=== PATIENT | male | born 1980 | race Caucasian/White ===

== ENCOUNTER 2017-12-02 17:26 | Emergency (ER) | payer OTHER | END 2017-12-02 20:20 | disposition left against medical advice (07) | LOC: M ED 17:26 | DX: Z53.21 Procedure and treatment not carried out due to patient leaving prior to being seen by health care provider (principal) ==

== ENCOUNTER 2018-02-07 20:26 | Emergency (ER) | payer OTHER ==
[2018-02-07] MEDS: AUGMENTIN 875 MG TAB PO (21:56)
[2018-02-07] MEDS: NORCO, ANEXSIA 5/325MG TABLET (HYDROcodone/ACETAMINOPHEN) PO (21:57)
== END 2018-02-07 22:04 | disposition home or self-care (01) ==
LOC: M ED 20:26
DX: K02.9 Dental caries, unspecified (principal); I10 Essential (primary) hypertension; G89.29 Other chronic pain; M54.9 Dorsalgia, unspecified; Z79.899 Other long term (current) drug therapy
CPT/HCPCS: 99283

== ENCOUNTER 2019-10-09 02:36 | Emergency (ER) | payer OTHER ==
[~2019-10-09] VITALS: Ht 190.5 cm; Wt 113.6 kg
[~2019-10-09 02:36] MED LIST: AUGM875T28 PO; HYDR-3715 PO; IBUP80TA PO; LISI20TA20 PO; Lisinopril-Hctz; TRAM50TA2 PO
[2019-10-09] MEDS ORDERED: SUBO8MIS (02:44)
[2019-10-09] MEDS ORDERED: BUPIVACAINE LIPOSOME/PF 1.3% 20ML VIAL (13.3MG/ML)(EXPAREL)(C9290 PER1MG) INFIL ONE ×2 (04:30)
[2019-10-09] MEDS ORDERED: HYDROMORPHONE HCL 0.5 MG/ 0.5 ML SYRINGE (J1170 PER 1) IV ONE (04:30)
[2019-10-09] MEDS ORDERED: AMPICILLIN SOD/SULBACTAM SOD 3 GM in D5W MINI-BAG PLUS 100 ML IV ONE (04:30)
[2019-10-09 04:45] VITALS: BP 189/95
[2019-10-09 04:51] LABS: BASO # 0.1 10^3/uL (0.0-0.2); BASO % 0.7 % (0.0-1.0); EOS # 0.4 10^3/uL (0.0-0.5); EOS % 4.4 % (0.0-3.0); HEMATOCRIT 44.8 % (42.0-52.0); HEMOGLOBIN 14.6 g/dl (13.5-17.5); LYMPH # 2.2 10^3/uL (1.5-5.0); LYMPH % 23.7 % (24.0-44.0); MEAN CORPUSCULAR HEMOGLOBIN 30.1 pg (27.0-33.0); MEAN CORPUSCULAR HGB CONC 32.6 g/dl (32.0-36.5); MEAN CORPUSCULAR VOLUME 92.4 fl (80.0-96.0); MONO # 1.3 10^3/uL (0.0-0.8); MONO % 14.3 % (0.0-5.0); NEUTROPHILS # 5.1 10^3/uL (1.5-8.5); NEUTROPHILS % 56.1 % (36.0-66.0); PLATELET COUNT, AUTOMATED 252 10^3/uL (150-450); RED BLOOD COUNT 4.85 10^6/uL (4.30-6.10); WHITE BLOOD COUNT 9.1 10^3/uL (4.0-10.0)
[2019-10-09] MEDS ORDERED: AUGM500T34 PO (05:01)
== END 2019-10-09 05:18 | disposition home or self-care (01) ==
LOC: M ED 02:36
DX: K12.2 Cellulitis and abscess of mouth (principal); K08.89 Other specified disorders of teeth and supporting structures; I10 Essential (primary) hypertension; Z79.899 Other long term (current) drug therapy; Z79.891 Long term (current) use of opiate analgesic
CPT/HCPCS: 64400; 85025; 87040; 87880; 96365; 96375; 99284; C9290; J1170

== ENCOUNTER 2020-06-17 08:52 | Emergency (ER) | payer OTHER ==
[~2020-06-17] VITALS: Ht 190.5 cm; Wt 100.0 kg
[~2020-06-17 08:52] MED LIST changes: +AUGM500T34 PO; +SUBO8MIS
[2020-06-17] MEDS ORDERED: AMLO1TAB25 (09:06)
[2020-06-17] MEDS ORDERED: ATEN100T (09:06)
[2020-06-17] MEDS ORDERED: NS 1,000 ML IV ONE ×2 (09:15→10:30)
[2020-06-17 09:22] LABS: HEMATOCRIT 44.8 % (42.0-52.0); HEMOGLOBIN 15.2 g/dl (13.5-17.5); MEAN CORPUSCULAR HEMOGLOBIN 30.1 pg (27.0-33.0); MEAN CORPUSCULAR HGB CONC 33.9 g/dl (32.0-36.5); MEAN CORPUSCULAR VOLUME 88.7 fl (80.0-96.0); PLATELET COUNT, AUTOMATED 246 10^3/uL (150-450); RED BLOOD COUNT 5.05 10^6/uL (4.30-6.10); WHITE BLOOD COUNT 4.9 10^3/uL (4.0-10.0)
[2020-06-17 09:56] LABS: ACETAMINOPHEN LEVEL < 2.0 UG/ML (10.0-30.0); ALBUMIN 4.1 GM/DL (3.2-5.2); ALT/SGPT 43 U/L (12-78); BILIRUBIN,DIRECT 0.3 MG/DL (0.0-0.2); BILIRUBIN,TOTAL 1.1 MG/DL (0.2-1.0); BLOOD UREA NITROGEN 11 MG/DL (7-18); CARBON DIOXIDE LEVEL 24 MEQ/L (21-32); CHLORIDE LEVEL 109 MEQ/L (98-107); CK-MB VALUE MASS 2.2 NG/ML (<3.6); CPK CREATINE PHOSPHOKINASE 221 U/L (39-308); CREATININE FOR GFR 1.28 MG/DL (0.70-1.30); ETHYL ALCOHOL (ETHANOL) < 0.003 % (0.000-0.010); GLOMERULAR FILTRATION RATE > 60.0 (>60); GLUCOSE, FASTING 113 MG/DL (70-100); POTASSIUM SERUM 3.5 MEQ/L (3.5-5.1); SALICYLATE LEVEL 2.6 MG/DL (5.0-30.0); SODIUM LEVEL 144 MEQ/L (136-145); TOTAL PROTEIN 7.7 GM/DL (6.4-8.2); TROPONIN I < 0.02 NG/ML (< 0.10)
[2020-06-17 11:09] LABS: AMPHETAMINES LEVEL URINE POSITIVE (NEGATIVE); BARBITURATES URINE NEGATIVE (NEGATIVE); BENZODIAZEPINES URINE NEGATIVE (NEGATIVE); CANNABINOIDS URINE POSITIVE (NEGATIVE); COCAINE METABOLITE URINE POSITIVE (NEGATIVE); METHADONE URINE NEGATIVE (NEGATIVE); OPIATES URINE NEGATIVE (NEGATIVE); PHENCYCLIDINE URINE NEGATIVE (NEGATIVE)
[2020-06-17 12:17] VITALS: BP 163/88
--- NOTE | 2020-06-17 19:11 | ECGEPIP ---
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
== END 2020-06-17 13:16 | disposition home or self-care (01) ==
LOC: M ED 08:52
DX: F14.129 Cocaine abuse with intoxication, unspecified (principal); F15.129 Other stimulant abuse with intoxication, unspecified; I10 Essential (primary) hypertension; F17.200 Nicotine dependence, unspecified, uncomplicated; Z79.899 Other long term (current) drug therapy
CPT/HCPCS: 80048; 80076; 80307; 82550; 82553; 84443; 85027; 93005; 96360; 96361; 99285; G0480

== ENCOUNTER 2020-07-12 20:25 | Emergency (ER) | payer OTHER ==
[~2020-07-12 20:25] MED LIST changes: +AMLO1TAB25; +ATEN100T
[2020-07-12] MEDS ORDERED: BOOSTRIX/ADACEL VACCINE (DIPHTH/PERTUSS/ACELL/TETANUS) 0.5ML SYR ONE (22:05)
[2020-07-12] MEDS ORDERED: ACETAMINOPHEN 325 MG TAB ONE (22:05)
== END 2020-07-12 22:45 | disposition home or self-care (01) ==
LOC: M ED 20:25
DX: S52.124A Nondisplaced fracture of head of right radius, initial encounter for closed fracture (principal); S09.90XA Unspecified injury of head, initial encounter; W22.8XXA Striking against or struck by other objects, initial encounter; Y92.89 Other specified places as the place of occurrence of the external cause; I10 Essential (primary) hypertension; F11.20 Opioid dependence, uncomplicated; F17.200 Nicotine dependence, unspecified, uncomplicated; Z79.899 Other long term (current) drug therapy

== ENCOUNTER 2020-09-11 23:07 | Emergency (ER) | payer OTHER ==
[~2020-09-11] VITALS: Ht 172.7 cm; Wt 90.9 kg
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
[2020-09-12 01:15] VITALS: BP 147/80
[2020-09-12] MEDS ORDERED: MORPHINE 4 MG/ML 1ML VIAL/SYRINGE (J2270) IV ONE ×2 (01:30→02:45)
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
[2020-09-12] MEDS ORDERED: AUGM875T28 PO (02:43)
[2020-09-12] MEDS ORDERED: AUGMENTIN 875 MG TAB PO ONE (02:45)
== END 2020-09-12 04:23 | disposition home or self-care (01) ==
LOC: M ED 23:07
DX: S52.571A Other intraarticular fracture of lower end of right radius, initial encounter for closed fracture (principal); S52.611A Displaced fracture of right ulna styloid process, initial encounter for closed fracture; S00.03XA Contusion of scalp, initial encounter; K04.7 Periapical abscess without sinus; Y04.8XXA Assault by other bodily force, initial encounter; Y92.410 Unspecified street and highway as the place of occurrence of the external cause; I10 Essential (primary) hypertension; F17.200 Nicotine dependence, unspecified, uncomplicated; Z79.899 Other long term (current) drug therapy; Z79.891 Long term (current) use of opiate analgesic
CPT/HCPCS: 29125; 70450; 70486; 71250; 73110; 96374; 96376; 99284; J2270

== ENCOUNTER → 2020-10-19 | Outpatient (CLI) | payer OTHER | LOC: M LABSMTC 10:05 | PROVIDERS: ATTEND Anesthesiology | DX: Z01.812 Encounter for preprocedural laboratory examination (principal); Z20.828 Contact with and (suspected) exposure to other viral communicable diseases ==

== ENCOUNTER 2021-01-03 22:19 | Emergency (ER) | payer OTHER ==
[~2021-01-03] VITALS: Ht 160 cm; Wt 95.5 kg
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
--- OUTSIDE RECORDS SUMMARY | 2021-01-03 22:28 | CCD | Continuity of Care Document ---
Author Author Yosi ANDERSON M.D. Organization Unknown Address [address] [place] [address] Phone [phone] Problems Description No Information Available Social History Type Date Description Comments Sex Unknown Allergies, Adverse Reactions, Alerts Description No Information Available Medications Description No Information Available Immunizations Description No Information Available Vital Signs Description No Information Available Results Description No Information Available Procedures Description No Information Available Medical Devices Description No Information Available Encounters Description No Information Available Assessments Description No Information Available Plan of Treatment No Information Available Functional Status Description No Information Available Mental Status Description No Information Available Referrals Description No Information Available
--- OUTSIDE RECORDS SUMMARY | 2021-01-03 22:28 | CCD ---
Author Author [facility] Organization [facility] Address Unknown Phone Unavailable Care Team Providers Care Manufacturing Engineering Intern Name Role Phone Sushil Clemons MD Unavailable Unavailable Sushil Clemons MD Unavailable Unavailable Sushil Clemons MD Unavailable Unavailable Sushil Clemons MD Unavailable Unavailable Sushil Clemons MD Unavailable Unavailable Sushil Clemons MD Unavailable Unavailable Sushil Clemons MD Unavailable Unavailable Sushil Clemons MD Unavailable Unavailable Sushil Clemons MD Unavailable Unavailable Sushil Clemons MD Unavailable Unavailable Sushil Clemons MD Unavailable Unavailable Sushil Clemons MD Unavailable Unavailable Sushil Clemons MD Unavailable Unavailable Sushil Clemons MD Unavailable Unavailable Sushil Clemons MD Unavailable Unavailable Sushil Clemons MD Unavailable Unavailable Sushil Clemons MD Unavailable Unavailable Sushil Clemons MD Unavailable Unavailable Sushil Clemons MD Unavailable Unavailable Sushil Clemons MD Unavailable Unavailable Sushil Clemons MD Unavailable Unavailable Sushil Clemons MD Unavailable Unavailable Sushil Clemons MD Unavailable Unavailable Sushil Clemons MD Unavailable Unavailable Sushil Clemons MD Unavailable Unavailable Sushil Clemons MD Unavailable Unavailable Sushil Clemons MD Unavailable Unavailable Sushil Clemons MD Unavailable Unavailable Sushil Clemons MD Unavailable Unavailable Sushil Clemons MD Unavailable Unavailable Sushil Clemons MD Unavailable Unavailable Sushil Clemons MD Unavailable Unavailable Sushil Clemons MD Unavailable Unavailable Sushil Clemons MD Unavailable Unavailable Sushil Clemons MD Unavailable Unavailable Sushil Clemons MD Unavailable Unavailable Sushil Clemons MD Unavailable Unavailable Sushil Clemons MD Unavailable Unavailable Sushil Clemons MD Unavailable Unavailable Sushil Clemons MD Unavailable Unavailable Sushil Clemons MD Unavailable Unavailable Sushil Clemons MD Unavailable Unavailable Sushil Clemons MD Unavailable Unavailable Sushil Clemons MD Unavailable Unavailable Sushil Clemons MD Unavailable Unavailable Sushil Clemons MD Unavailable Unavailable Sushil Clemons MD Unavailable Unavailable Sushil Clemons MD Unavailable Unavailable Sushil Clemons MD Unavailable Unavailable Sushil Clemons MD Unavailable Unavailable Sushil Clemons MD Unavailable Unavailable Sushil Clemons MD Unavailable Unavailable Sushil Clemons MD Unavailable Unavailable Sushil Clemons MD Unavailable Unavailable Sushil Clemons MD Unavailable Unavailable Sushil Clemons MD Unavailable Unavailable Sushil Clemons MD Unavailable Unavailable Sushil Clemons MD Unavailable Unavailable Sushil Clemons MD Unavailable Unavailable Sushil Clemons MD Unavailable Unavailable Sushil Clemons MD Unavailable Unavailable Sushil Clemons MD Unavailable Unavailable Sushil Clemons MD Unavailable Unavailable Sushil Clemons MD Unavailable Unavailable Sushil Clemons MD Unavailable Unavailable Sushil Clemons MD Unavailable Unavailable Sushil Clemons MD Unavailable Unavailable Sushil Clemons MD Unavailable Unavailable Sushil Clemons MD Unavailable Unavailable Sushil Clemons MD Unavailable Unavailable Sushil Clemons MD Unavailable Unavailable Sushil Clemons MD Unavailable Unavailable Sushil Clemons MD Unavailable Unavailable Sushil Clemons MD Unavailable Unavailable Sushil Clemons MD Unavailable Unavailable Sushil Clemons MD Unavailable Unavailable Sushil Clemons MD Unavailable Unavailable Sushil Clemons MD Unavailable Unavailable Sushil Clemons MD Unavailable Unavailable Sushil Clemons MD Unavailable Unavailable Sushil Clemons MD Unavailable Unavailable Sushil Clemons MD Unavailable Unavailable Sushil Clemons MD Unavailable Unavailable Sushil Clemons MD Unavailable Unavailable Sushil Clemons MD Unavailable Unavailable Sushil Clemons MD Unavailable Unavailable Sushil Clemons MD Unavailable Unavailable Sushil Clemons MD Unavailable Unavailable Sushil Clemons MD Unavailable Unavailable Mesha Kelly MD Unavailable Unavailable Mesha Kelly MD Unavailable Unavailable Mesha Kelly MD Unavailable Unavailable Mesha Kelly MD Unavailable Unavailable Mesha Kelly MD Unavailable Unavailable Mesha Kelly MD Unavailable Unavailable Mesha Kelly MD Unavailable Unavailable Mesha Kelly MD Unavailable Unavailable Mesha Kelly MD Unavailable Unavailable Mesha Kelly MD Unavailable Unavailable Mollison, W Chance MD Unavailable Unavailable Mollison, W Chance MD Unavailable Unavailable Mollison, W Chance MD Unavailable Unavailable Mollison, W Chance MD Unavailable Unavailable Mollison, W Chance MD Unavailable Unavailable Mollison, W Chance MD Unavailable Unavailable Mollison, W Chance MD Unavailable Unavailable Mollison, W Chance MD Unavailable Unavailable Mollison, W Chance MD Unavailable Unavailable Mollison, W Chance MD Unavailable Unavailable Mollison, W Chance MD Unavailable Unavailable Mollison, W Chance MD Unavailable Unavailable Simi Chavez Unavailable Re-disclosure Warning The records that you are about to access may contain information from federally-assisted alcohol or drug abuse programs. If such information is present, then the following federally mandated warning applies: This information has been disclosed to you from records protected by federal confidentiality rules (42 CFR part 2). The federal rules prohibit you from making any further disclosure of this information unless further disclosure is expressly permitted by the written consent of the person to whom it pertains or as otherwise permitted by 42 CFR part 2. A general authorization for the release of medical or other information is NOT sufficient for this purpose. The Federal rules restrict any use of the information to criminally investigate or prosecute any alcohol or drug abuse patient.The records that you are about to access may contain highly sensitive health information, the redisclosure of which is protected by Article 27-F of the [facility] Public Health law. If you continue you may have access to information: Regarding HIV / AIDS; Provided by facilities licensed or operated by the [facility] Office of Mental Health; or Provided by the [facility] Office for People With Developmental Disabilities. If such information is present, then the following [facility] mandated warning applies: This information has been disclosed to you from confidential records which are protected by state law. State law prohibits you from making any further disclosure of this information without the specific written consent of the person to whom it pertains, or as otherwise permitted by law. Any unauthorized further disclosure in violation of state law may result in a fine or senior living sentence or both. A general authorization for the release of medical or other information is NOT sufficient authorization for further disc losure. Family History Family Member Name Family Member Gender Family Member Status Date o f Status Description Data Source(s) Unknown Unknown Problem [facility] ([facility]) Unknown Unknown Problem [facility] ([facility]) Unknown Unknown Problem [facility] ([facility]) Encounters Encounter Providers Location Date Indications Data Source(s ) Crisis Intervention - Brief Attender: Simi robison [facility] 11/07/2020 12:15:00 PM EST - 11/07/2020 12:15:00 PM EST [facility]) Attender: Simi Scott 11/07/2020 12:00:[address] [facility]) Attender: Simi Chavez 11/01/2020 12:00:[address] [facility] ([facility]) Crisis Intervention - Brief Attender: Simi Regalado ntphyllis [facility] 10/31/2020 08:30:00 AM EST - 10/31/2020 08:30:00 AM EST [facility] ([facility]) Outpatient Attender: Chance Solano/Malka/Alfonzo/Re indl 10/03/2020 07:00:00 AM EST [facility] ([facility]) Outpatient Attender: Chance Clemons MD 09/14/2020 04:07:59 PM EDT [facility] Outpatient Attender: Chance Solano/Malka/Alfonzo/Re indl 09/13/2020 02:10:00 PM EDT [facility] ([facility]) Outpatient Attender: Chance Clemons MD FP 09/12/2020 10:10:01 AM EDT [facility] Outpatient Attender: Chance Clemons MD FP 08/30/2020 12:17:00 PM EDT [facility] Outpatient Attender: Chance Clemons MD FP 08/28/2020 04:30:10 PM EDT [facility] Outpatient Attender: Chance Clemons MD FP 08/24/2020 02:04:00 PM EDT [facility] Outpatient Attender: Chance Clemons MD FP 08/24/2020 01:12:00 PM EDT [facility] Outpatient Attender: Chance Clemons MD FP 08/23/2020 11:24:01 AM EDT [facility] Outpatient Attender: Chance Clemons MD FP 08/16/2020 04:30:04 PM EDT [facility] Outpatient Attender: Chance Clemons MD FP 08/14/2020 10:55:02 AM EDT [facility] Outpatient Attender: Chance Clemons MD FP 08/13/2020 11:16:00 AM EDT [facility] Outpatient Attender: Chance Clemons MD FP 08/10/2020 09:41:00 AM EDT [facility] Outpatient Attender: Chance Clemons MD FP 08/09/2020 04:41:01 PM EDT [facility] Outpatient Attender: Chance Clemons MD FP 08/09/2020 04:23:01 PM EDT [facility] Outpatient Attender: Chance Clemons MD FP 08/02/2020 11:20:02 AM EDT [facility] Outpatient Attender: Chance Clemons MD FP 08/02/2020 09:49:01 AM EDT [facility] Outpatient Attender: Chance Clemons MD FP 08/01/2020 09:45:02 AM EDT [facility] Outpatient Attender: Chance Clemons MD FP 07/30/2020 12:12:01 PM EDT [facility] Outpatient Attender: Chance Clemons MD FP 07/27/2020 08:50:01 AM EDT [facility] Outpatient Attender: Chance Clemons MD FP 07/26/2020 08:39:00 AM EDT [facility] Outpatient Attender: Chance Clemons MD FP 07/25/2020 04:09:00 PM EDT [facility] Outpatient Attender: Chance Clemons MD FP 07/24/2020 09:20:01 AM EDT [facility] Outpatient Attender: Chance Clemons MD FP 07/24/2020 07:44:01 AM EDT [facility] Outpatient Attender: Chance Clemons MD FP 07/19/2020 12:36:00 PM EDT [facility] Outpatient Attender: Chance Clemons MD FP 07/19/2020 12:35:01 PM EDT [facility] Outpatient Attender: Chance Clemons MD FP 07/19/2020 08:50:01 AM EDT [facility] Outpatient Attender: Chance Clemons MD FP 07/18/2020 01:48:00 PM EDT [facility] Outpatient Attender: Chance Clemons MD FP 07/13/2020 12:02:16 AM EDT [facility] Outpatient Attender: Chance Clemons MD FP 07/12/2020 04:36:00 PM EDT [facility] Outpatient Attender: Chance Clemons MD FP 07/12/2020 04:35:00 PM EDT [facility] Outpatient Attender: Chance Clemons MD FP 07/12/2020 03:27:01 PM EDT [facility] Outpatient Attender: Chance Clemons MD FP 07/09/2020 11:32:00 AM EDT [facility] Outpatient Attender: Chance Clemons MD FP 07/06/2020 07:38:00 AM EDT [facility] Outpatient Attender: Chance Clemons MD FP 07/05/2020 08:35:05 AM EDT [facility] Outpatient Attender: Chance Clemons MD FP 07/04/2020 04:42:00 PM EDT [facility] Outpatient Attender: Chance Clemons MD FP 07/04/2020 04:41:01 PM EDT [facility] Outpatient Attender: Chance Clemons MD FP 07/04/2020 11:21:01 AM EDT [facility] Outpatient Attender: Chance Clemons MD FP 07/04/2020 12:02:26 AM EDT [facility] Outpatient Attender: Chance Clemons MD FP 07/03/2020 03:24:00 PM EDT [facility] Outpatient Attender: Chance Clemons MD FP 07/03/2020 03:16:01 PM EDT [facility] Outpatient Attender: Chance Clemons MD FP 07/03/2020 07:21:01 AM EDT [facility] Outpatient Attender: Chance Clemons MD FP 07/03/2020 12:02:27 AM EDT [facility] Outpatient Attender: Chance Clemons MD FP 07/02/2020 02:42:01 PM EDT [facility] Outpatient Attender: Chance Clemons MD FP 07/02/2020 09:55:00 AM EDT [facility] Outpatient Attender: Chance Clemons MD FP 07/02/2020 09:42:01 AM EDT [facility] Outpatient Attender: Chance Clemons MD FP 06/30/2020 12:02:14 AM EDT [facility] Outpatient Attender: Chance Clemons MD FP 06/29/2020 03:07:01 PM EDT [facility] Outpatient Attender: Chance Clemons MD FP 06/29/2020 10:48:01 AM EDT [facility] Outpatient Attender: Chance Clemons MD FP 06/29/2020 12:02:23 AM EDT [facility] Outpatient Attender: Chance Clemons MD FP 06/28/2020 04:00:01 PM EDT [facility] Outpatient Attender: Chance Clemons MD FP 06/27/2020 05:00:01 PM EDT [facility] Outpatient Attender: Chance Clemons MD FP 06/27/2020 04:08:01 PM EDT [facility] Outpatient Attender: Chance Clemons MD FP 06/27/2020 02:52:01 PM EDT [facility] Outpatient Attender: Chance Clemons MD FP 06/26/2020 03:33:01 PM EDT [facility] Outpatient Attender: Chance Clemons MD FP 06/22/2020 10:05:00 AM EDT [facility] Outpatient Attender: Chance Clemons MD FP 06/19/2020 11:15:04 AM EDT [facility] Outpatient Attender: Chance Clemons MD FP 06/19/2020 08:20:00 AM EDT [facility] Outpatient Attender: Chance Clemons MD FP 06/04/2020 04:58:01 PM EDT [facility] Outpatient Attender: Chance Clemons MD FP 06/04/2020 03:44:01 PM EDT [facility] Outpatient Attender: Chance Clemons MD FP 06/04/2020 09:09:01 AM EDT [facility] Outpatient Attender: Chance Clemons MD FP 05/29/2020 12:51:01 PM EDT [facility] Outpatient Attender: Chance Clemons MD FP 05/11/2020 11:07:00 AM EDT [facility] Outpatient Attender: Chance Clemons MD FP 05/08/2020 07:48:44 PM EDT [facility] Outpatient Attender: Chance Clemons MD FP 05/01/2020 04:31:00 PM EDT [facility] Outpatient Attender: Chance Clemons MD FP 04/26/2020 07:46:01 AM EDT [facility] Outpatient Attender: Chance Clemons MD FP 04/24/2020 02:22:00 PM EDT [facility]patient Attender: Chance Clemons MD FP 04/24/2020 01:55:01 PM EDT [facility] Outpatient Attender: Chance Clemons MD FP 04/04/2020 02:11:01 PM EDT [facility] Outpatient Attender: Chance Clemons MD FP 04/04/2020 01:54:00 PM EDT [facility]patient Attender: Chance Clemons MD FP 04/02/2020 03:08:00 PM EDT [facility] Outpatient Attender: Chance Clemons MD FP 03/08/2020 05:12:00 PM EDT [facility]patient Attender: Chance Clemons MD FP 03/06/2020 03:19:00 PM EDT [facility]patient Attender: Chance Clemons MD FP 03/06/2020 01:38:04 PM EDT [facility]patient Attender: Chance Clemons MD FP 02/27/2020 02:19:00 PM EDT [facility] Outpatient Attender: Chance Clemons MD FP 02/22/2020 10:23:00 AM EDT [facility]patient Attender: Chance Clemons MD FP 02/17/2020 03:39:01 PM EDT [facility] Outpatient Attender: Chance Clemons MD FP 02/17/2020 03:38:00 PM EDT [facility]patient Attender: Chance Clemons MD FP 02/13/2020 01:34:00 PM EDT [facility] Outpatient Attender: Chance Clemons MD FP 02/08/2020 04:31:01 PM EDT [facility]patient Attender: Chance Clemons MD FP 02/06/2020 01:14:01 PM EDT [facility]patient Attender: Chance Clemons MD FP 01/26/2020 11:59:00 AM EST [facility]patient Attender: Chance Clemons MD FP 01/26/2020 11:00:10 AM EST [facility]patient Attender: Chance Clemons MD FP 01/25/2020 05:15:01 PM EST [facility]patient Attender: Chance Clemons MD FP 01/18/2020 03:54:00 PM EST [facility]patient Attender: Chance Clemons MD FP 01/11/2020 04:36:00 PM [facility] Attender: Chance Clemons MD FP 12/14/2019 05:20:00 PM [facility]patient Attender: Chance Clemons MD FP 12/14/2019 05:18:00 PM [facility]patient Attender: Chance Clemons MD FP 12/14/2019 04:38:01 PM EST [facility] Attender: Chance Clemons MD FP 12/08/2019 03:00:01 PM EST [facility] Attender: Chance Clemons MD FP 11/09/2019 02:03:00 PM [facility] Medications Medication Brand Name Start Date Product Form Dose Route Admi nistrative Instructions Pharmacy Instructions Status Indications Reaction Description Data Source(s) Acetaminophen 325 MG / Oxycodone Hydrochloride 5 MG Or al Tablet Oxycodone-Acetaminophen 09/13/2020 12:00:00 AM EDT ORAL completed [facility] ([facility] ) 875-125 mg 09/12/2020 12:00:00 AM EDT tablet 20 TAKE ONE TABLET BY MOUTH TWICE A DAY TAKE ONE TABLET BY MOUTH TWICE A DAY SOLD: 09/13/2020 [facility] 8-2 mg 08/24/2020 12:00:00 AM EDT film [address] 2 FILMS UNDER THE TONGUE EVERY DAY FOR THE TREATMENT OF OPIOID ADDICTION MAXIMUM DAILY DOSE = [address] 2 FILMS UNDER THE TONGUE EVERY DAY FOR THE TREATMENT OF OPIOID ADDICTION MAXIMUM DAILY DOSE = 2 FILMS SOLD: 08/29/2020 [facility] 8-2 mg 08/10/2020 12:00:00 AM EDT film 14 PL[address] 2 FILMS UNDER THE TONGUE ONCE DAILY FOR OPIOID ADDICTION MAXIMUM DAILY DOSE = [address] 2 FILMS UNDER THE TONGUE ONCE DAILY FOR OPIOID ADDICTION MAXIMUM DAILY DOSE = 2 FILMS SOLD: 08/11/2020 [facility] 8-2 mg 08/02/2020 12:00:00 AM EDT film [address] TWO FILMS UNDER THE TONGUE EVERY DAY FOR THE TREATMENT OF OPIOD ADDICTION MAXIMUM DAILY DOSE = [address] TWO FILMS UNDER THE TONGUE EVERY DAY FOR THE TREATMENT OF OPIOD ADDICTION MAXIMUM DAILY DOSE = 2 FILMS SOLD: 08/03/2020 [facility] 100 mg 08/02/2020 12:00:00 AM EDT tablet 30 TAKE ONE TABLET BY MOUTH ONCE DAILY TAKE ONE TABLET BY MOUTH ONCE DAILY SOLD: 08/03/2020 [facility] Atenolol 100 MG Oral Tablet ATENOLOL 08/02/2020 12:00:00 AM EDT table t 30 TAKE ONE TABLET BY MOUTH ONCE DAILY TAKE ONE TABLET BY MOUTH ONCE DAILY SOLD: 09/13/2020 [facility] 8-2 mg 07/26/2020 12:00:00 AM EDT film [address] TWO FILMS UNDER THE TONGUE EVERY DAY MAXIMUM DAILY DOSE = [address] TWO FILMS UNDER THE TONGUE EVERY D AY MAXIMUM DAILY DOSE = 2 FILM SOLD: 07/26/2020 [facility] 8-2 mg 07/19/2020 12:00:00 AM EDT film 14 PL[address] 2 FILMS UNDER TONGUE EVERY DAY FOR TREATMENT OF OPIOD ADDICTION MAX 2FILMS/DAY PLACE 2 FILMS UNDER TONGUE EVERY DAY FOR TREATMENT OF OPIOD ADDICTION MAX 2FILMS/DAY SOLD: 07/19/2020 [facility] 8-2 mg 07/12/2020 12:00:00 AM EDT film 14 PL[address] 2 FILMS UNDER THE TONGUE EVERY DAY FOR OPIOD ADDICTION MAX=2FILMS/DAY PLACE 2 FILMS UNDER THE TONGUE EVERY DAY FOR OPIOD ADDICTION MAX=2FILMS/DAY SOLD: 07/13/2020 [facility] 8-2 mg 07/06/2020 12:00:00 AM EDT film [address] 2FILMS UNDER TONGUE DAILY FOR TREATMENT OF OPIOID ADDICTION MAX=2/DAY PLACE 2FILMS UNDER TONGUE DAILY FOR TREATMENT OF OPIOID ADDICTION MAX=2/DAY SOLD: 07/07/2020 [facility] 8-2 mg 07/05/2020 12:00:00 AM EDT film 4 PLACE TWO FILMS UNDER THE TONGUE EVERY DAY FOR TREATMENT OF OPIOD ADDICTION MAXIMUM DAILY DOSE = [address] TWO FILMS UNDER THE TONGUE EVERY DAY FOR TREATMENT OF OPIOD ADDICTION MAXIMUM DAILY DOSE = 2 FILMS SOLD: 07/05/2020 [facility] 10 mg 07/02/2020 12:00:00 AM EDT tablet 30 TAKE 1 TABLET BY MOUTH ONCE DAILY TAKE 1 TABLET BY MOUTH ONCE DAILY SOLD: 08/03/2020 [facility] 10 mg 07/02/2020 12:00:00 AM EDT tablet 30 TAKE 1 TABLET BY MOUTH ONCE DAILY TAKE 1 TABLET BY MOUTH ONCE DAILY SOLD: 07/04/2020 [facility] 10 mg 07/02/2020 12:00:00 AM EDT tablet 30 TAKE 1 TABLET BY MOUTH ONCE DAILY TAKE 1 TABLET BY MOUTH ONCE DAILY SOLD: 09/13/2020 [facility] 8-2 mg 06/04/2020 12:00:00 AM EDT film [address] TWO FILMS UNDER THE TONGUE EVERY DAY MAX DAILY DOSE = [address] TWO FILMS UNDER THE TONGUE EVERY D AY MAX DAILY DOSE = 2 FILM SOLD: 06/04/2020 [facility] 8-2 mg 05/05/2020 12:00:00 AM EDT film [address] 2 FILMS UNDER THE TONGUE ONCE DAILY , MAXIMUM DAILY DOSE = [address] 2 FILMS UNDER THE TONGUE ONCE DAILY , MAXIMUM DAILY DOSE = 2 FILMS SOLD: 05/05/2020 [facility] 100 mg 05/02/2020 12:00:00 AM EDT tablet 30 TAKE ONE TABLET BY MOUTH ONCE DAILY TAKE ONE TABLET BY MOUTH ONCE DAILY SOLD: 07/04/2020 [facility] 100 mg 05/02/2020 12:00:00 AM EDT tablet 30 TAKE ONE TABLET BY MOUTH ONCE DAILY TAKE ONE TABLET BY MOUTH ONCE DAILY SOLD: 05/05/2020 [facility] 100 mg 05/02/2020 12:00:00 AM EDT tablet 30 TAKE ONE TABLET BY MOUTH ONCE DAILY TAKE ONE TABLET BY MOUTH ONCE DAILY SOLD: 06/04/2020 [facility] 8-2 mg 04/06/2020 12:00:00 AM EDT film [address] 2 FILMS UNDER THE TONGUE EVERY DAY FOR THE TREATMENT OF OPIOID ADDICTION MAXIMUM DAILY DOSE = [address] 2 FILMS UNDER THE TONGUE EVERY DAY FOR THE TREATMENT OF OPIOID ADDICTION MAXIMUM DAILY DOSE = 2 FILMS SOLD: 04/06/2020 [facility] 8-2 mg 03/08/2020 12:00:00 AM EDT film [address] 2 FILMS UNDER THE TONGUE ONCE DAILY MAXIMUM DAILY DOSE = [address] 2 FILMS UNDER THE TONGUE ONCE DAILY MAXIMUM DAILY DOSE = 2 FILMS SOLD: 03/08/2020 [facility] 8-2 mg 02/22/2020 12:00:00 AM EDT film 28 [address] 2 FILMS UNDER THE TONGUE EVERY DAY FOR THE TREATMENT OF OPIOID ADDICTION MAXIMUM DAILY DOSE = [address] 2 FILMS UNDER THE TONGUE EVERY DAY FOR THE TREATMENT OF OPIOID ADDICTION MAXIMUM DAILY DOSE = 2 FILMS SOLD: 02/23/2020 [facility] 8-2 mg 02/08/2020 12:00:00 AM EDT film 28 [address]ACE TWO FILMS UNDER THE TONGUE EVERY DAY FOR TREATMENT OF OPIOD ADDICTION MAXIMUM DAILY DOSE = [address] TWO FILMS UNDER THE TONGUE EVERY DAY FOR TREATMENT OF OPIOD ADDICTION MAXIMUM DAILY DOSE = 2 FILMS SOLD: 02/09/2020 [facility] 8-2 mg 01/27/2020 12:00:00 AM EST film [address] PLACE TWO FILMS UNDER THE TONGUE EVERY DAY MAXIMUM DAILY DOSE = [address] TWO FILMS UNDER THE TONGUE EVERY DAY MAXIMUM DAILY DOSE = 2 FILMS SOLD: 01/27/2020 [facility] 8-2 mg 01/19/2020 12:00:00 AM EST film 14 PLACE 2 FILMS UNDER THE TONGUE EVERY DAY FOR THE TREATMENT OF OPIOID ADDICTION MAXIMUM DAILY DOSE = [address] 2 FILMS UNDER THE TONGUE EVERY DAY FOR THE TREATMENT OF OPIOID ADDICTION MAXIMUM DAILY DOSE = 2 FILMS SOLD: 01/20/2020 [facility] 8-2 mg 01/13/2020 12:00:00 AM EST film 14 DISSOLVE 2 FILMS SUBLINGUALLY ONCE DAILY MAX = 2 FILMS/DAY DISSOLVE 2 FILMS SUBLINGUALLY ONCE DAILY MAX = 2 FILMS/DAY SOLD: 01/13/2020 [facility] 10 mg 01/12/2020 12:00:00 AM EST tablet 30 TAKE 1 TABLET BY MOUTH ONCE DAILY TAKE 1 TABLET BY MOUTH ONCE DAILY SOLD: 05/05/2020 [facility] 10 mg 01/12/2020 12:00:00 AM EST tablet 30 TAKE 1 TABLET BY MOUTH ONCE DAILY TAKE 1 TABLET BY MOUTH ONCE DAILY SOLD: 04/06/2020 [facility] 10 mg 01/12/2020 12:00:00 AM EST tablet 30 TAKE 1 TABLET BY MOUTH ONCE DAILY TAKE 1 TABLET BY MOUTH ONCE DAILY SOLD: 06/04/2020 [facility] 10 mg 01/12/2020 12:00:00 AM EST tablet 30 TAKE 1 TABLET BY MOUTH ONCE DAILY TAKE 1 TABLET BY MOUTH ONCE DAILY SOLD: 02/09/2020 [facility] 10 mg 01/12/2020 12:00:00 AM EST tablet 30 TAKE 1 TABLET BY MOUTH ONCE DAILY TAKE 1 TABLET BY MOUTH ONCE DAILY SOLD: 01/13/2020 [facility] 10 mg 01/12/2020 12:00:00 AM EST tablet 30 TAKE 1 TABLET BY MOUTH ONCE DAILY TAKE 1 TABLET BY MOUTH ONCE DAILY SOLD: 03/08/2020 [facility] 8-2 mg 12/15/2019 12:00:00 AM EST film [address] PL[address] TWO FILMS UNDER THE TONGUE EVERY DAY MAXIMUM DAILY DOSE = [address] TWO FILMS UNDER THE TONGUE EVERY D AY MAXIMUM DAILY DOSE = 2 FILM SOLD: 12/15/2019 [facility] 8-2 mg 11/16/2019 12:00:00 AM EST film 60 PLACE TWO FILMS UNDER THE TONGUE EVERY DAY FOR OPIATE ADDICTION MAXIMUM DAILY DOSE = [address] TWO FILMS UNDER THE TONGUE EVERY DAY FOR OPIATE ADDICTION MAXIMUM DAILY DOSE = 2 FILMS SOLD: 11/16/2019 [facility] 50 mg 11/03/2019 12:00:00 AM EST tablet 30 TAKE ONE TABLET BY MOUTH EVERY DAY TAKE ONE TABLET BY MOUTH EVERY DAY SOLD: 03/08/2020 [facility] 50 mg 11/03/2019 12:00:00 AM EST tablet 30 TAKE ONE TABLET BY MOUTH EVERY DAY TAKE ONE TABLET BY MOUTH EVERY DAY SOLD: 04/06/2020 [facility] 50 mg 11/03/2019 12:00:00 AM EST tablet 30 TAKE ONE TABLET BY MOUTH EVERY DAY TAKE ONE TABLET BY MOUTH EVERY DAY SOLD: 01/12/2020 [facility] 50 mg 11/03/2019 12:00:00 AM EST tablet 30 TAKE ONE TABLET BY MOUTH EVERY DAY TAKE ONE TABLET BY MOUTH EVERY DAY SOLD: 12/15/2019 [facility] 50 mg 11/03/2019 12:00:00 AM EST tablet 30 TAKE ONE TABLET BY MOUTH EVERY DAY TAKE ONE TABLET BY MOUTH EVERY DAY SOLD: 02/09/2020 [facility] 50 mg 11/03/2019 12:00:00 AM EST tablet 30 TAKE ONE TABLET BY MOUTH EVERY DAY TAKE ONE TABLET BY MOUTH EVERY DAY SOLD: 11/16/2019 [facility] 8-2 mg 11/02/2019 12:00:00 AM EST film 28 PLACE TWO FILMS UNDER THE TONGUE EVERY DAY FOR THE TREATMENT OF OPIOID ADDICTION MAXIMUM DAILY DOSE = [address] TWO FILMS UNDER THE TONGUE EVERY DAY FOR THE TREATMENT OF OPIOID ADDICTION MAXIMUM DAILY DOSE = 2 FILMS SOLD: 11/03/2019 [facility] 25 mg 10/19/2019 12:00:00 AM EST tablet 30 TAKE ONE TABLET BY MOUTH EVERY DAY TAKE ONE TABLET BY MOUTH EVERY DAY SOLD: 11/03/2019 [facility] 20-25 mg 10/05/2019 12:00:00 AM EST tablet 30 TAKE ONE TABLET BY MOUTH EVERY DAY TAKE ONE TABLET BY MOUTH EVERY DAY SOLD: 03/08/2020 [facility] 20-25 mg 10/05/2019 12:00:00 AM EST tablet 30 TAKE ONE TABLET BY MOUTH EVERY DAY TAKE ONE TABLET BY MOUTH EVERY DAY SOLD: 12/15/2019 [facility] 20-25 mg 10/05/2019 12:00:00 AM EST tablet 30 TAKE ONE TABLET BY MOUTH EVERY DAY TAKE ONE TABLET BY MOUTH EVERY DAY SOLD: 02/09/2020 [facility] 20-25 mg 10/05/2019 12:00:00 AM EST tablet 30 TAKE ONE TABLET BY MOUTH EVERY DAY TAKE ONE TABLET BY MOUTH EVERY DAY SOLD: 11/03/2019 [facility] 20-25 mg 10/05/2019 12:00:00 AM EST tablet 30 TAKE ONE TABLET BY MOUTH EVERY DAY TAKE ONE TABLET BY MOUTH EVERY DAY SOLD: 01/12/2020 [facility] Insurance Providers Payer name Policy type / Coverage type Policy ID Covered alliance party ID Covered alliance party's relationship to lobo Policy Lobo Plan Information [facility] [id number] SP [id number] [facility]) O [id number] S [id number] [facility] Care - [facility] Community Plan P [id number] S [id number] Medicaid S [id number] S [id number] Medicaid S [id number] S [id number] Managed Care - [facility] Community Plan P [id number] S [id number] Medicaid S [id number] S [id number] [facility] P [id number] S [id number] Managed [facility] Plan [facility] P [id number] S [id number] Managed Care - Community Plan [facility] P [id number] S [id number] Managed [facility] - Community Plan [facility] P [id number] S [id number] Medicaid S [id number] S [id number] Self Pay P UNAVAILABLE S UNAVAILA BLE [facility] COMMUNITY PLAN [facility] [id number] SP [id number] [facility] Care - Community [facility] P [id number] S [id number] Medicaid S [id number] S [id number] [facility] O [id number] S [id number] [facility] Maintenance Organization (HMO) Self MEDICAID [id number] SP [id number] SELF PAY ONLY UNAVAILABLE UNAV AILABLE SELF PAY UNAVAILABLE SP UNAVAILA BLE BLUE CROSS GREGORY PLAN [id number] SP [id number] HMO BLUE [id number] SP [id number] Problems, Conditions, and Diagnoses Code Display Name Description Problem Type Effective Dates Data Source(s) F15.20 Other stimulant dependence, uncomplicate d Stimulant Use Disorder, Severe: Amphetamine-type substance Condition 11/07/2020 12:00:00 AM EST [facility] ([facility]) F43.8 Other 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 11/07/2020 12:00:00 AM EST [facility] ([facility]) [id number] Essential hypertension Essential hypertension Problem 09/17/2020 12:00:00 AM EDT [facility] ([facility], ) 309.81 PTSD PTSD 07/04/2020 04:40:03 PM ED T [facility] Surgeries/Procedures Procedure Description Date Indications Data Source(s) Crisis intervention service, per 15 minutes 11/07/2020 12:00:00 AM EST - 11/07/2020 12:00:00 AM EST [facility] ([facility]) Crisis intervention service, per 15 minutes 11/07/2020 12:00:00 AM EST [facility] ([facility]) Crisis intervention service, per 15 minutes 11/01/2020 12:00:00 AM EST - 11/01/2020 12:00:00 AM EST [facility] ([facility]) Crisis intervention service, per 15 minutes 10/31/2020 12:00:00 AM EST [facility] ([facility]) RADEX WRIST 2 VIEWS 10/03/2020 12:00:00 AM EST [facility] ([facility]) RADEX FOREARM 2 VIEWS 09/13/2020 12:00:00 AM EDT [facility] ([facility]) Results ID Date Data Source [id number] 12/31/2020 12:00:00 AM EST [facility] Name Value Range Interpretation Code Description Data Zee rce(s) Supporting Document(s) SARS-CoV2 Rapid Antigen Negative [facility] This lab was ordered by [facility] and reported by [facility]. ID Date Data Source [id number] 10/19/2020 10:00:00 AM EST [facility] Name Value Range Interpretation Code Description Data Zee rce(s) Supporting Document(s) SARS coronavirus 2 RNA [facility] This lab was ordered by [facility] and reported by [facility]. Procedure Social History Code Duration Value Status Description Data Source(s ) Smoking 11/07/2020 12:00:00 AM EST Unknown if ever smoked comp leted Unknown if ever smoked [facility] ([facility]) Smoking 11/01/2020 12:00:00 AM EST Unknown if ever smoked comp leted Unknown if ever smoked [facility] ([facility]) Vital Signs ID Date Data Source UNK Name Value Range Interpretation Code Description Data Source(s) Body weight 91.174 kg 91.174 kg [facility] ([facility], ) [place] body weight 184 [lb_av] 184 [lb_av] MEDEN T ([facility], ) Body mass index (BMI) [Ratio] 26.5 kg/m2 26.5 k g/m2 [facility]) Body weight 201.00 [lb_av] 201.00 [lb_av] NIKHIL Vásquez ([facility], ) Body height 73 [in_i] 73 [in_i] [facility] ([facility], ) 6'1" Body temperature 96.7 [degF] 96.7 [degF] [facility] ([facility], )
--- OUTSIDE RECORDS SUMMARY | 2021-01-03 22:28 | CCD | Continuity of Care Document ---
Author Author Ysoi ANDERSON M.D. Organization Unknown Address [address] [place] [address] Phone [phone] Problems Description No Information Available Social History Type Date Description Comments Sex Unknown Allergies, Adverse Reactions, Alerts Description No Known Drug Allergies Medications Description No Information Available Immunizations Description [...]
--- OUTSIDE RECORDS SUMMARY | 2021-01-03 22:28 | CCD | Continuity of Care Document ---
Author Author Yosi ADAMS MD Organization Unknown Address [address] [place] [address], [address] [address] Phone [phone] Care Team Providers Care Institution Librarian Name Role Phone Nikita Salcedo MD [facility] Unavailable Chance Clemons MD [facility] [phone] Problems Active Problems Provider Date Preventive procedure [...] Available Procedures Date Code Description Status 10/03/2020 03152 X-Ray Wrist Ap & Lateral 2 Views Completed 09/13/2020 94513 X-Ray Forearm Ap & Lateral 2 Vie [...]
--- OUTSIDE RECORDS SUMMARY | 2021-01-03 22:28 | CCD | Continuity of Care Document ---
Author Author Yosi ANDERSON M.D. Organization Unknown Address [address] [place] [address] Phone [phone] Problems Description No Information Available Social History [...]
--- OUTSIDE RECORDS SUMMARY | 2021-01-03 22:28 | CCD ---
Author Author ScottYosina Organization Unknown Address [address] [place] [address] Phone Unavailable Care Team Providers Care Electrocardiograph Repairer Name Role Phone ScottSimi PCP Allergies, Adverse Reactions, Alerts No Data in Section Problem List Concept Problem Description Status Start Date Created Date Resolv ed Date Snomed Code F43.8 Other Specified Trauma- and Stressor-Related Disorder Acti ve 11/07/2020 F15.20 Stimulant Use Disorder, Severe: Amphetamine-type subst ance Active 11/07/2020 Medications No Data in Section Social History Social History Element Description Concept Effective Date Smoking Status Unknown if ever smoked [id number] Immunizations No Data in Section Vital Signs No Data in Section Procedures Date Concept Id Description Targeted Site Concept Targeted Site Concept Type 11/07/2020 H2011 Crisis Intervention - Brief CPT Patient has no history of implantable de vices Encounters Encounter Start Date End Date Encounter Type Description Diagnosis Di agnosis Desc Location Author First Name Author Last Name Npid Taxonomy Cod e Taxonomy Desc Phone Number Location Addr1 Location Addr2 [facility] Location [facility] [id number] 11/07/2020 11/07/2020 H2011 Crisis Intervention - Brief F43.8 Other reactions to severe stress [facility] Scott Belcher [phone] [id number] Special Officer [employer] [phone] [address] [place] [address] Plan of Treatment No Data in Section Lab Results No Data in Section Instructions No Data in Section Insurance Providers Insurance Id Policy Effective Date Policy Thru Date Company N jahaira [id number] 2020 [facility]
--- OUTSIDE RECORDS SUMMARY | 2021-01-03 22:28 | CCD ---
Author Author ScottYosina Organization Unknown Address [address] [place] [address] Phone Unavailable Care Team Providers Care Sex Offender Treatment Professional Name Role Phone ScottSimi PCP Allergies, Adverse Reactions, Alerts No Data in Section Problem List Concept Problem Description Status Start Date Created Date Resolv ed Date Snomed Code F43.8 Other Specified Trauma- and Stressor-Related Disorder Acti ve 11/01/2020 F15.20 Stimulant Use Disorder, Severe: Amphetamine-type subst ance Active 11/01/2020 Medications No Data in Section Social History Social History Element Description Concept Effective Date Smoking Status Unknown if ever smoked [id number] Immunizations No Data in Section Vital Signs No Data in Section Procedures Date Concept Id Description Targeted Site Concept Targeted Site Concept Type 10/31/2020 H2011 Crisis Intervention - Brief CPT Patient has no history of implantable de vices Encounters Encounter Start Date End Date Encounter Type Description Diagnosis Di agnosis Desc Location Author First Name Author Last Name Npid Taxonomy Cod e Taxonomy Desc Phone Number Location Addr1 Location Addr2 Location [facility] Location [facility] Location [facility] [id number] 10/31/2020 10/31/2020 H2011 Crisis Intervention - Brief F43.8 Other reactions to severe stress [facility] Scott Belcher [phone] [id number] [employer] Physiological Technician [phone] [address] [place] [address] Plan of Treatment No Data in Section Lab Results No Data in Section Instructions No Data in Section Insurance Providers Insurance Id Policy Effective Date Policy Thru Date Company N jahaira [id number] 2020 [facility]
--- OUTSIDE RECORDS SUMMARY | 2021-01-03 22:28 | CCD | Continuity of Care Document ---
Author Author Yosi ANDERSON M.D. Organization Unknown Address [address] [place] [address] Phone [phone] Problems Description No Information Available Social History [...]
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
--- NOTE | 2021-01-03 23:08 | REPVR ---
PROCEDURE INFORMATION: Exam: XR Right Wrist Exam date and time: 01/03/2021 10:48 PM Age: 40 years old Clinical indication: Injury or trauma; Fall; Swelling (edema); Wrist; Right; Additional info: Deformity pain TECHNIQUE: Imaging protocol: XR Right wrist. Views: 3 or more views. COMPARISON: CR Wrist, complete 09/11/2020 11:16 PM FINDINGS: Bones/joints: Interval healing of a distal radial fracture since the prior study. There is deformity the ulnar styloid with osseous separation consistent with residua of fracture which is similar to the prior study. There is prominent dorsal angulation of the distal radial articular surface which is unchanged. No definite acute fracture. Soft tissues: Slight soft tissue swelling is noted about the carpus. IMPRESSION: 1. Interval healing of a distal radial fracture since 09/11/2020 with residual deformity and dorsal angulation of the articular surface. 2. Deformity under styloid with separation of osseous fragments consistent with residua of ulnar styloid fracture which is similar to the prior study. 3. Soft tissue swelling about the wrist. 4. No definite interval acute fracture is seen. Electronically signed by: Artemio Jones On 01/03/2021 23:07:47 PM
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
--- OUTSIDE RECORDS SUMMARY | 2021-01-04 00:30 | CCD ---
Author Author [facility] Organization [facility] Address Unknown Phone Unavailable Care Team Providers Care Corrections Specialist Name Role Phone Sushil Clemons MD Unavailable [...] is protected by Article 27-F of the [facility] Public Health law. If you continue you may have access to information: Regarding HIV / AIDS; Provided by facilities licensed or operated by the [facility] Office of Mental Health; or Provided by the [facility] Office for People With Developmental Disabilities. If such information is present, then the following [facility] mandated warning applies: This information has been [...] law may result in a fine or care home sentence or both. A general authorization for [...] Crisis Intervention - Brief Attender: Simi robison Longterm 11/07/2020 12:15:00 PM EST - 11/07/2020 12:15:00 PM EST [facility] ([facility]) Attender: Simi Scott 11/07/2020 12:00:[address] [facility] ([facility]) Attender: Simi Chavez 11/01/2020 12:00:[address] [facility] ([facility]) Crisis Intervention - Brief Attender: Simi Regalado ntphyllis Longterm 10/31/2020 08:30:00 AM EST - 10/31/2020 08:30:00 AM EST [facility] ([facility]) Outpatient Attender: Chance Solano/Malka/Alfonzo/Re indl 10/03/2020 07:00:00 AM EST [facility] ([facility]) Outpatient Attender: Chance Clemons MD 09/14/2020 04:07:59 PM EDT [facility] Outpatient Attender: Chance Solano/Malka/Alfonzo/Re indl 09/13/2020 02:10:00 PM EDT [facility] ([facility]) Outpatient Attender: Chance Clemons MD FP 09/12/2020 10:10:01 AM EDT [facility] Outpatient Attender: Chance Clemons MD FP 08/30/2020 12:17:00 PM EDT [facility] Outpatient Attender: Chance Clemons MD FP 08/28/2020 04:30:10 PM EDT [facility] Outpatient Attender: Chance Clemons MD FP 08/24/2020 02:04:00 PM EDT [facility] Outpatient Attender: Chance Clemons MD FP 08/24/2020 01:12:00 PM EDT [facility] Outpatient Attender: Chance Clemons MD FP 08/23/2020 11:24:01 AM EDT [facility] Outpatient Attender: Chance Clemons MD FP 08/16/2020 04:30:04 PM EDT [facility] Outpatient Attender: Chance Clemons MD FP 08/14/2020 10:55:02 AM EDT [facility] Outpatient Attender: Chance Clemons MD FP 08/13/2020 11:16:00 AM EDT [facility] Outpatient Attender: Chance Clemons MD FP 08/10/2020 09:41:00 AM EDT [facility] Outpatient Attender: Chance Clemons MD FP 08/09/2020 04:41:01 PM EDT [facility] Outpatient Attender: Chance Clemons MD FP 08/09/2020 04:23:01 PM EDT [facility] Outpatient Attender: Chance Clemons MD FP 08/02/2020 11:20:02 AM EDT [facility] Outpatient Attender: Chance Clemons MD FP 08/02/2020 09:49:01 AM EDT [facility] Outpatient Attender: Chance Clemons MD FP 08/01/2020 09:45:02 AM EDT [facility] Outpatient Attender: Chance Clemons MD FP 07/30/2020 12:12:01 PM EDT [facility] Outpatient Attender: Chance Clemons MD FP 07/27/2020 08:50:01 AM EDT [facility] Outpatient Attender: Chance Clemons MD FP 07/26/2020 08:39:00 AM EDT [facility] Outpatient Attender: Chance Clemons MD FP 07/25/2020 04:09:00 PM EDT [facility] Outpatient Attender: Chance Clemons MD FP 07/24/2020 09:20:01 AM EDT [facility] Outpatient Attender: Chance Clemons MD FP 07/24/2020 07:44:01 AM EDT [facility] Outpatient Attender: Chance Clemons MD FP 07/19/2020 12:36:00 PM EDT [facility] Outpatient Attender: Chance Clemons MD FP 07/19/2020 12:35:01 PM EDT [facility] Outpatient Attender: Chance Clemons MD FP 07/19/2020 08:50:01 AM EDT [facility] Outpatient Attender: Chance Clemons MD FP 07/18/2020 01:48:00 PM EDT [facility] Outpatient Attender: Chance Clemons MD FP 07/13/2020 12:02:16 AM EDT [facility] Outpatient Attender: Chance Clemons MD FP 07/12/2020 04:36:00 PM EDT [facility] Outpatient Attender: Chance Clemons MD FP 07/12/2020 04:35:00 PM EDT [facility] Outpatient Attender: Chance Clemons MD FP 07/12/2020 03:27:01 PM EDT [facility] Outpatient Attender: Chance Clemons MD FP 07/09/2020 11:32:00 AM EDT [facility] Outpatient Attender: Chance Clemons MD FP 07/06/2020 07:38:00 AM EDT [facility] Outpatient Attender: Chance Clemons MD FP 07/05/2020 08:35:05 AM EDT [facility] Outpatient Attender: Chance Clemons MD FP 07/04/2020 04:42:00 PM EDT [facility] Outpatient Attender: Chance Clemons MD FP 07/04/2020 04:41:01 PM EDT [facility] Outpatient Attender: Chance Clemons MD FP 07/04/2020 11:21:01 AM EDT [facility] Outpatient Attender: Chance Clemons MD FP 07/04/2020 12:02:26 AM EDT [facility] Outpatient Attender: Chance Clemons MD FP 07/03/2020 03:24:00 PM EDT [facility] Outpatient Attender: Chance Clemons MD FP 07/03/2020 03:16:01 PM EDT [facility] Outpatient Attender: Chance Clemons MD FP 07/03/2020 07:21:01 AM EDT [facility] Outpatient Attender: Chance Clemons MD FP 07/03/2020 12:02:27 AM EDT [facility] Outpatient Attender: Chance Clemons MD FP 07/02/2020 02:42:01 PM EDT [facility] Outpatient Attender: Chance Clemons MD FP 07/02/2020 09:55:00 AM EDT [facility] Outpatient Attender: Chance Clemons MD FP 07/02/2020 09:42:01 AM EDT [facility] Outpatient Attender: Chance Clemons MD FP 06/30/2020 12:02:14 AM EDT [facility] Outpatient Attender: Chance Clemons MD FP 06/29/2020 03:07:01 PM EDT [facility] Outpatient Attender: Chance Clemons MD FP 06/29/2020 10:48:01 AM EDT [facility] Outpatient Attender: Chance Clemons MD FP 06/29/2020 12:02:23 AM EDT [facility] Outpatient Attender: Chance Clemons MD FP 06/28/2020 04:00:01 PM EDT [facility] Outpatient Attender: Chance Clemons MD FP 06/27/2020 05:00:01 PM EDT [facility] Outpatient Attender: Chance Clemons MD FP 06/27/2020 04:08:01 PM EDT [facility] Outpatient Attender: Chance Clemons MD FP 06/27/2020 02:52:01 PM EDT [facility] Outpatient Attender: Chance Clemons MD FP 06/26/2020 03:33:01 PM EDT [facility] Outpatient Attender: Chance Clemons MD FP 06/22/2020 10:05:00 AM EDT [facility] Outpatient Attender: Chance Clemons MD FP 06/19/2020 11:15:04 AM EDT [facility] Outpatient Attender: Chance Clemons MD FP 06/19/2020 08:20:00 AM EDT [facility] Outpatient Attender: Chance Clemons MD FP 06/04/2020 04:58:01 PM EDT [facility] Outpatient Attender: Chance Clemons MD FP 06/04/2020 03:44:01 PM EDT [facility] Outpatient Attender: Chance Clemons MD FP 06/04/2020 09:09:01 AM EDT [facility] Outpatient Attender: Chance Clemons MD FP 05/29/2020 12:51:01 PM EDT [facility] Outpatient Attender: Chance Clemons MD FP 05/11/2020 11:07:00 AM EDT [facility] Outpatient Attender: Chance Clemons MD FP 05/08/2020 07:48:44 PM EDT [facility] Outpatient Attender: Chance Clemons MD FP 05/01/2020 04:31:00 PM EDT [facility] Outpatient Attender: Chance Clemons MD FP 04/26/2020 07:46:01 AM EDT [facility] Outpatient Attender: Chance Clemons MD FP 04/24/2020 02:22:00 PM EDT [facility] Outpatient Attender: Chance Clemons MD FP 04/24/2020 01:55:01 PM EDT [facility] Outpatient Attender: Chance Clemons MD FP 04/04/2020 02:11:01 PM EDT [facility] Outpatient Attender: Chance Clemons MD FP 04/04/2020 01:54:00 PM EDT [facility] Outpatient Attender: Chance Clemons MD FP 04/02/2020 03:08:00 PM EDT [facility] Outpatient Attender: Chance Clemons MD FP 03/08/2020 05:12:00 PM EDT [facility] Outpatient Attender: Chance Clemons MD FP 03/06/2020 03:19:00 PM EDT [facility] Outpatient Attender: Chance Clemons MD FP 03/06/2020 01:38:04 PM EDT [facility] Outpatient Attender: Chance Clemons MD FP 02/27/2020 02:19:00 PM EDT [facility] Outpatient Attender: Chance Clemons MD FP 02/22/2020 10:23:00 AM EDT [facility] Outpatient Attender: Chance Clemons MD FP 02/17/2020 03:39:01 PM EDT [facility] Outpatient Attender: Chance Clemons MD FP 02/17/2020 03:38:00 PM EDT [facility] Outpatient Attender: Chance Clemons MD FP 02/13/2020 01:34:00 PM EDT [facility] Outpatient Attender: Chance Clemons MD FP 02/08/2020 04:31:01 PM EDT [facility] Outpatient Attender: Chance Clemons MD FP 02/06/2020 01:14:01 PM EDT [facility] Outpatient Attender: Chance Clemons MD FP 01/26/2020 11:59:00 AM EST [facility] Outpatient Attender: Chance Clemons MD FP 01/26/2020 11:00:10 AM EST [facility]patient Attender: Chance Clemons MD FP 01/25/2020 05:15:01 PM EST [facility]patient Attender: Chance Clemons MD FP 01/18/2020 03:54:00 PM EST [facility]patient Attender: Chance Clemons MD FP 01/11/2020 04:36:00 PM [facility] Attender: Chance Clemons MD FP 12/14/2019 05:20:00 PM [facility] Attender: Chance Clemons MD FP 12/14/2019 05:18:00 PM [facility] Attender: Chance Clemons MD FP 12/14/2019 04:38:01 PM EST [facility]patient Attender: Chance Clemons MD FP 12/08/2019 03:00:01 PM EST [facility]patient Attender: Chance Clemons MD FP 11/09/2019 02:03:00 PM [facility] Medications Medication Brand Name Start Date Product Form Dose Route Admi nistrative Instructions Pharmacy Instructions Status Indications Reaction Description Data Source(s) Acetaminophen 325 MG / Oxycodone Hydrochloride 5 MG Or al Tablet Oxycodone-Acetaminophen 09/13/2020 12:00:00 AM EDT ORAL completed [facility] ([facility], ) 875-125 mg 09/12/2020 12:00:00 AM [...] TABLET BY MOUTH ONCE DAILY SOLD: 02/09/2020 [facility] 10 mg 01/12/2020 12:00:00 AM [...] relationship to lobo Policy Lobo Plan Information [facility] MCDO [id number] SP [id number] [facility]) O [id number] S [id number] [facility] Care - [facility] Community Plan P [id number] S [id number] Medicaid S [id number] S [id number] Medicaid S [id number] S [id number] Managed Care - [facility] Community Plan P [id number] S [id number] Medicaid S [id number] S [id number] [facility] Plan [facility] P [id number] S [id number] Managed [facility] Plan [facility] P [id number] S [id number] Managed Care - Community Plan [facility] P [id number] S [id number] Managed [facility] - Community Plan [facility] P [id number] S [id number] Medicaid S [id number] S [id number] Self Pay P UNAVAILABLE S UNAVAILA BLE [facility] [id number] SP [id number] [facility] Care - Community [facility] P [id number] S [id number] Medicaid S [id number] S [id number] [facility]) O [id number] S [id number] [facility] Health Maintenance Organization (HMO) Self MEDICAID [id number] SP [id number] SELF PAY ONLY UNAVAILABLE UNAV AILABLE SELF PAY UNAVAILABLE SP UNAVAILA BLE BLUE [employer] PLAN [id number] SP [id number] HMO BLUE [id number] SP [id number] Problems, Conditions, and Diagnoses Code Display Name Description Problem Type Effective Dates Data Source(s) F15.20 Other stimulant dependence, uncomplicate d Stimulant Use Disorder, Severe: Amphetamine-type substance Condition 11/07/2020 12:00:00 AM EST [facility] ([facility]) F43.8 Other 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 11/07/2020 12:00:00 AM EST [facility] ([facility]) [id number] Essential hypertension Essential hypertension Problem 09/17/2020 12:00:00 AM EDT [facility] ([facility], ) 309.81 PTSD PTSD 07/04/2020 04:40:03 PM ED T [facility] Surgeries/Procedures Procedure Description Date Indications Data Source(s) Crisis intervention service, per 15 minutes 11/07/2020 12:00:00 AM EST - 11/07/2020 12:00:00 AM EST [facility] ([facility]) Crisis intervention service, per 15 minutes 11/07/2020 12:00:00 AM EST [facility] ([facility]) Crisis intervention service, per 15 minutes 11/01/2020 12:00:00 AM EST - 11/01/2020 12:00:00 AM EST [facility] ([facility]) Crisis intervention service, per 15 minutes 10/31/2020 12:00:00 AM EST [facility] ([facility]) RADEX WRIST 2 VIEWS 10/03/2020 12:00:00 AM EST [facility] ([facility]) RADEX FOREARM 2 VIEWS 09/13/2020 12:00:00 AM EDT [facility] ([facility]) Results ID Date Data Source [id number] 12/31/2020 12:00:00 AM EST [facility] Name Value Range Interpretation Code Description Data Zee rce(s) Supporting Document(s) SARS-CoV2 Rapid Antigen Negative [facility] This lab was ordered by [facility] and reported by [facility]. ID Date Data Source [id number] 10/19/2020 10:00:00 AM EST [facility] Name Value Range Interpretation Code Description Data Zee rce(s) Supporting Document(s) SARS coronavirus 2 RNA [facility] This lab was ordered by [facility] and reported by [facility]. Procedure Social History Code Duration Value Status Description Data Source(s ) Smoking 11/07/2020 12:00:00 AM EST Unknown if ever smoked comp leted Unknown if ever smoked [facility] ([facility]) Smoking 11/01/2020 12:00:00 AM EST Unknown if ever smoked comp leted Unknown if ever smoked [facility] ([facility]) Vital Signs ID Date Data Source UNK Name Value Range Interpretation Code Description Data Source(s) Body weight 91.174 kg 91.174 kg [facility] ([facility], ) [place] body weight 184 [lb_av] 184 [lb_av] [facility] T ([facility], ) Body mass index (BMI) [Ratio] 26.5 kg/m2 26.5 k g/m2 [facility] Body weight 201.00 [lb_av] 201.00 [lb_av] NIKHIL Vásquez ([facility], ) Body height 73 [in_i] 73 [in_i] [facility] ([facility] ) 6'1" Body temperature 96.7 [degF] 96.7 [degF] [facility] ([facility], )
[2021-01-04 01:21] VITALS: BP 149/108
== END 2021-01-04 01:49 | disposition home or self-care (01) ==
LOC: M ED 22:19
DX: S09.90XA Unspecified injury of head, initial encounter (principal); Y35.813A Legal intervention involving manhandling, suspect injured, initial encounter; Y92.9 Unspecified place or not applicable; Y93.9 Activity, unspecified; Y99.9 Unspecified external cause status; Z87.81 Personal history of (healed) traumatic fracture; Z79.2 Long term (current) use of antibiotics; Z79.899 Other long term (current) drug therapy

== ENCOUNTER 2021-04-21 14:27 | Emergency (ER) | payer OTHER ==
[~2021-04-21] VITALS: Ht 190.5 cm; Wt 114.3 kg
[2021-04-21] MEDS ORDERED: ATEN25TA PO (14:36)
--- NOTE | 2021-04-21 15:19 | REP ---
INDICATION: fall injury. COMPARISON: Comparison radiographs are from January 03, 2021.. TECHNIQUE: Four views of the right wrist are provided. FINDINGS: Four views of the right wrist demonstrate old posttraumatic deformity of the distal radius consistent with a healed dorsally displaced impacted distal radial fracture. There is an ununited ulnar styloid fracture fragment which is also old. There is mild widening of the navicular lunate space suggesting injury to the navicular lunate ligament. These findings are unchanged. No acute fracture or subluxation is seen. IMPRESSION: Old healed distal radial and ulnar styloid fracture. No acute fracture seen. <Electronically signed by Renny Gilman > 04/21/21 [id number]
[2021-04-21 16:02] VITALS: BP 137/88
== END 2021-04-21 16:04 | disposition home or self-care (01) ==
LOC: M ED 14:27
DX: S63.501A Unspecified sprain of right wrist, initial encounter (principal); Y04.0XXA Assault by unarmed brawl or fight, initial encounter; Y92.149 Unspecified place in prison as the place of occurrence of the external cause; Y93.9 Activity, unspecified; Y99.9 Unspecified external cause status; I10 Essential (primary) hypertension; Z79.899 Other long term (current) drug therapy